=== PATIENT | female | born 2000 | race Caucasian/White ===

== ENCOUNTER 2024-03-20 12:06 | Inpatient (IN) ==
[2024-03-20] MEDS ORDERED: LIDOCAINE 1% LOCAL 20 ML VIAL INFIL PRN (12:42)
[2024-03-20] MEDS: LACTATED RINGER'S 1,000 ML IV SCH (13:00)
[2024-03-20 13:20] LABS: Hematocrit (blood only) 37.5 % (37.0-47.0); Mean Corpuscular Hemoglobin 29.4 pg (25.0-34.0); Mean Corpuscular Hgb Conc 34.7 g/dL (32.0-36.0); Mean Corpuscular Volume 84.8 fL (80.0-100.0); Mean Platelet Volume 10.8 fL (9.4-12.4); Platelet Count 153 K/uL (130-400); RDW Coefficient of Variation 13.5 % (11.5-14.5); RDW Standard Deviation 41.7 fL (36.4-46.3); Red Blood Count 4.42 M/uL (4.20-5.40); White Blood Count 11.62 K/ul (4.8-10.8)
--- NOTE | 2024-03-20 13:27 | Anesthesiology Consultation ---
Date of Service March 20, 2024 Assessment & Plan Chart Review Chart Review: Acceptable Risk for Surgery and Patient NOT seen in Pre Admission Testing Consults Requested none ASA ASA2 Proposed Anesthesia Anesthesia Type: Labor Epidural and CSE History Allergies Allergy/AdvReac Type Severity Reaction Status Date / Time No Known Allergies Allergy Verified 03/15/24 13:06 Medications Home Medications Medication Instructions Recorded Confirmed Last Taken ondansetron 4 mg disintegrating 4 mg PO Q6H PRN nausea and 08/25/23 03/15/24 Unknown tablet vomiting #15 tabs 21-iron fu-folic acid 1 tab PO UD 08/25/23 03/19/24 1 Day Ago [ Complete] ~03/18/24 blood sugar diagnostic (OneTouch #150 ea 02/09/24 03/15/24 Unknown Verio test strips) blood-glucose meter (OneTouch #1 ea 02/09/24 03/15/24 Unknown Verio Reflect Meter) lancets 33 gauge (OneTouch Delica #150 ea 02/09/24 03/15/24 Unknown Plus Lancet) Past Medical History Medical History Depression gestational diabetes Exercise / Class Metabolic Activity II 4-5 Yardwork/Stairs/Walk up hill Past Family History Family History Father Diabetes Denies family history of Ovarian cancer Breast cancer Colorectal cancer Past Surgical History Surgical History No history of previous surgery Past Anesthesia History No Hx of Anesthesia Complications and No Family Hx of Anesthesia Complications History of PONV No Hx of PONV and No Hx of Motion Sickness Social History Smoking Status: Never smoker Do You Dip or Chew Tobacco: No Hx Alcohol Use: No Hx Substance Use: No Physical Exam Vital Signs Last Vital Signs Pulse 82 03/20/24 12:15 BP 125/81 03/20/24 12:15 Testing Laboratory Results 03/20/24 13:03
[2024-03-20] MEDS: fentaNYL citrate PF 100 MCG/2 ML VIAL ONE (14:13)
[2024-03-20] MEDS: LIDOCAINE 2%/EPINEPHRINE 1:200,000 20 ML PF ONE (14:14)
[2024-03-20] MEDS: BUPIVACAINE 0.25% PF 30 ML VIAL ONE (14:14)
[2024-03-20] MEDS: fentANYL 2 MCG/ML BUPIVacaine 0.125%-NSS 100ML BAG ONE (14:14)
[2024-03-20] MEDS ORDERED: NALBUPHINE HCL INJ 10 MG/ML AMP IV PRN (14:15)
[2024-03-20] MEDS ORDERED: fentaNYL citrate PF 100 MCG/2 ML VIAL EPI PRN (14:15)
[2024-03-20] MEDS ORDERED: NALOXONE HCL 1 MG in SODIUM CHLORIDE 0.9% 1,000 ML IV PRN (14:15)
[2024-03-20] MEDS ORDERED: ROPIVACAINE 0.5% PF 5 MG/ML 20 ML VIAL EPI PRN (14:15)
[2024-03-20] MEDS ORDERED: LIDOCAINE 2% MPF LOCAL 5 ML VIAL EPI PRN (14:15)
[2024-03-20] MEDS ORDERED: fentANYL 2 MCG/ML BUPIVacaine 0.125%-NSS 100ML BAG EPI PRN (14:15)
[2024-03-20] MEDS ORDERED: BUPIVACAINE 0.25% PF 30 ML VIAL EPI PRN (14:15)
[2024-03-20] MEDS ORDERED: PROMETHAZINE 6.25 MG/50.25 ML BAG IV PRN (14:15)
[2024-03-20] MEDS ORDERED: NALOXONE HCL 0.4 MG/1 ML VIAL/CARP IV PRN (14:15)
[2024-03-20] MEDS ORDERED: ONDANSETRON INJ 2 MG/ML 2 ML VIAL IV PRN (14:15)
[2024-03-20] MEDS ORDERED: SODIUM CHLORIDE 0.9% PF INJ 10 ML VIAL EPI PRN (14:15)
[2024-03-20] MEDS ORDERED: ePHEDrine sulfate 50 MG/ML AMP IV PRN (14:15)
[2024-03-20] MEDS ORDERED: diphenhydrAMINE 50 MG/ML VIAL IV PRN (14:15)
[2024-03-20] MEDS: SODIUM CHLORIDE 0.9% PF INJ 10 ML VIAL ONE (14:39)
[2024-03-20] MEDS: ePHEDrine sulfate 50 MG/ML AMP ONE (14:39)
[2024-03-20] MEDS: SODIUM CHLORIDE 0.9% PF INJ 10 ML VIAL EPI STA (18:26)
[2024-03-20] MEDS: LIDOCAINE 2%/EPINEPHRINE 1:200,000 20 ML PF EPI STA (18:26)
[2024-03-20] MEDS: fentaNYL citrate PF 100 MCG/2 ML VIAL EPI STA (18:26)
[2024-03-20] MEDS: BUPIVACAINE 0.25% PF 30 ML VIAL EPI STA (18:26)
[2024-03-20] MEDS: ACETAMINOPHEN 500 MG TAB PO PRN (18:33)
[2024-03-20] MEDS: OXYTOCIN 30 UNITS/NSS 30 UNITS/500 ML BAG IV PRN (19:19)
[2024-03-20] MEDS: miSOPROStoL 200 MCG TAB PR ONE (19:37)
[2024-03-20] MEDS: METHYLERGONOVINE MALEATE 0.2 MG/ML AMP IM ONE (19:40)
[2024-03-20] MEDS ORDERED: bisacodyL 10 MG SUPP PR PRN (19:55)
[2024-03-20] MEDS ORDERED: HYDROCORTISONE ACETATE 25 MG SUPP PR PRN (19:55)
[2024-03-20] MEDS ORDERED: OXYTOCIN 30 UNITS/NSS 30 UNITS/500 ML BAG IV PRN (19:55)
--- NOTE | 2024-03-20 20:01 | Delivery Summary ---
Vaginal Delivery Summary Date of Service March 20, 2024 Vaginal Delivery Summary and 2nd Degree LAC Patient progressed to 10 cm dilated 100% effaced +2 station pushed over intact perineum with epidural anesthesia and delivered a viable with weight and Apgars pending. Head of the delivered without difficulty quickly followed by body and shoulders. was noted to be vigorous soon after delivery and a 1 minute delayed cord clamping was initiated. Cord was then double clamped and cut remained on maternal abdomen. Cord blood obtained. Attention turned to deliver the placenta which delivered which delivered with three-vessel cord gentle cord traction. Inspection of the vagina, perineum and cervix there was noted to be a left sidewall vaginal lacerations that continued into a left labial laceration and bilateral periurethral lacerations. All lacerations repaired with 3-0 Vicryl continuous running stitch. Bleeding post placenta was noted to be moderately increased and Cytotec and Methergine given with good response. No complications noted during delivery and blood loss per QBL. [facility] Vaginal Delivery Charge Delivery Type Details: and 2nd Degree LAC
--- NOTE | 2024-03-20 20:15 | Anesthesia Procedure Note ---
Date of Service March 20, 2024 Anesthesia Post Epidural Note Vital Signs Vital Signs: Temp Pulse Resp BP Pulse Ox O2 Del Method 36.8 C 113 H 16 124/75 98 Room Air 03/20/24 17:15 03/20/24 20:13 03/20/24 17:45 03/20/24 20:11 03/20/24 20:13 03/20/24 19:50 Notes Mental Status: alert / awake / arousable Nausea / Vomiting: adequately controlled Pain: adequately controlled Airway Patency, RR, SpO2: stable & adequate BP & HR: stable & adequate Hydration State: stable & adequate Neuraxial Anesthesia: was administered and sensory block is resolving Anesthetic Complications: no major complications apparent and Pt Satisfied with anesthetic care Epidural: Removed without complications and With tip intact
[2024-03-20] MEDS: DIPHTHER/TETAN/PERTUS Vaccine (Tdap, Adol/Adult) 0.5mL IM ONE (20:39)
[2024-03-20] MEDS: DOCUSATE SODIUM 100 MG CAP PO SCH (21:58)
[2024-03-20] MEDS: BENZOCAINE 20% SPRY 85 APPLN/85 GM CAN EXT PRN (22:36)
[2024-03-20] MEDS: IBUPROFEN 600 MG TAB PO PRN (22:52)
[2024-03-21] MEDS: ACETAMINOPHEN 325 MG TAB PO PRN (01:30)
[2024-03-21 07:02] LABS: Hematocrit (blood only) 27.6 % (37.0-47.0); Hemoglobin 9.8 g/dl (12.0-16.0)
[2024-03-21] MEDS: FERROUS SULFATE 325 MG TAB PO SCH (08:08)
[2024-03-21] MEDS: PRENATAL VITAMIN 1 TAB PO SCH (08:09)
[2024-03-21] MEDS: bisacodyL 5 MG TABEC PO SCH (19:26)
[2024-03-22 00:46] VITALS: TEMP 98.2
[2024-03-22 07:21] VITALS: BP 100/62; PULSE 88; RESP 16; O2SAT 98
--- NOTE | 2024-03-22 07:24 | Obstetrical Progress Note ---
Date of Service March 22, 2024 Assessment & Plan (1) Encounter for care and examination after delivery: Day 2 status post vaginal delivery. Patient doing well and stable for discharge Subjective Ambulation: ambulating normally Voiding: no voiding problems Passing Gas:: Yes Diet Tolerance:: regular diet Lochia:: Moderate Feeding Type:: breast feeding As patient is Haitian-speaking and medical interpretation services are questionable I discussed patient with overnight nurse. Nurse had no concerns wi th patient reports that she is doing well and sees no issues with discharge Physical Exam Constitutional WD/WN, vitals as above Respiratory normal respiratory effort; no respiratory distress and no labored breathing Cardiovascular Extremities: no calf tenderness Gastrointestinal (Abdomen) Inspection/Auscultation: abdomen normal to inspection; abdomen not distended Percussion/Palpation: abdomen soft; abdomen nontender, no guarding and abdomen not rigid Genitourinary OB Exam Abdomen: + fundal height Fundus: + firm and + relation to umbilicus (Below); not tender or not boggy Results & Data Vital Signs (Past 12 Hours) Vital Signs Temp Pulse Resp BP Pulse Ox O2 Del Method 03/22/24 07:15 36.8 C 88 16 100/62 98 Room Air 03/22/24 00:30 36.8 C 93 H 18 102/67 99 Room Air 03/21/24 19:30 36.9 C 98 H 18 107/68 99 Room Air
--- NOTE | 2024-03-22 07:26 | Obstetrical Progress Note ---
Date of Service March 21, 2024 Missed writing note on day of visit. This is the summary note for visit on 03/21 Assessment & Plan (1) Encounter for care and examination after delivery: Day 1 status post vaginal delivery. Patient doing well. Routine care Subjective Ambulation: ambulating normally Voiding: no voiding problems Passing Gas:: Yes Diet Tolerance:: regular diet Lochia:: Moderate Feeding Type:: breast feeding As patient is [place]-speaking and medical interpretation services are questionable I discussed patient with overnight nurse. Nurse had no concerns with patient reports that she is doing well. Physical Exam Constitutional WD/WN, vitals as above Respiratory normal respiratory effort; no respiratory distress and no labored breathing Cardiovascular Extremities: no calf tenderness Gastrointestinal (Abdomen) Inspection/Auscultation: abdomen normal to inspection; abdomen not distended Percussion/Palpation: abdomen soft; abdomen nontender, no guarding and abdomen not rigid Genitourinary OB Exam Abdomen: + fundal height Fundus: + firm and + relation to umbilicus (Below); not tender or not boggy Results & Data Vital Signs (Past 12 Hours) Vital Signs Temp Pulse Resp BP Pulse Ox O2 Del Method 03/22/24 07:15 36.8 C 88 16 100/62 98 Room Air 03/22/24 00:30 36.8 C 93 H 18 102/67 99 Room Air 03/21/24 19:30 36.9 C 98 H 18 107/68 99 Room Air
== END 2024-03-22 14:20 | disposition home or self-care (01) | DRG 807 ==
LOC: OPB 12:06 → 4S1 12:12 → 4E2 22:45